=== PATIENT | male | born 1965 | race Two or more races ===

== ENCOUNTER 2022-06-17 12:34 | Outpatient (RCR) | payer MEDICAID, SELFPAY | END 2022-09-14 11:50 | disposition home or self-care (01) | LOC: HO.WCC 12:34 | PROVIDERS: PCP Family Medicine; Visit Provider Surgery | DX: S91.104A Unspecified open wound of right lesser toe(s) without damage to nail, initial encounter (principal); B35.3 Tinea pedis; Z79.899 Other long term (current) drug therapy | CPT/HCPCS: 11042; 99212; 99213 ==